=== PATIENT | male | born 1950 | race Caucasian/White ===

== ENCOUNTER 2018-12-17 16:54 | Outpatient (CLI) | payer MEDICARE, OTHER ==
--- NOTE | 2018-12-17 17:13 | RAD ---
TWO VIEWS OF THE CHEST: 12/17/18 COMPARISON: None. HISTORY: COPD and dyspnea. FINDINGS: Two views of the chest show normal sized cardiomediastinal silhouette. There is no evidence of consol idation, mass, or pleural effusion. The bones are unremarkable. IMPRESSION: No evidence of acute cardiopulmonary disease. POS: [facility]
== END 2018-12-17 16:55 | disposition home or self-care (01) ==
LOC: MADRAD 16:54
PROVIDERS: ATTEND Nurse Practitioner Family
DX: J44.9 Chronic obstructive pulmonary disease, unspecified (principal); R06.00 Dyspnea, unspecified; R09.1 Pleurisy; R30.0 Dysuria; R53.83 Other fatigue; Z85.72 Personal history of non-Hodgkin lymphomas
CPT/HCPCS: 71046

== ENCOUNTER 2018-12-24 11:55 | Outpatient (CLI) | payer MEDICARE, MEDICAID ==
--- NOTE | 2018-12-24 13:27 | RAD ---
LEFT WRIST RADIOGRAPHS FOUR VIEWS: 12/24/2018 PROVIDED CLINICAL HISTORY: Chronic pain. FINDINGS: There is no evidence for fracture or other acute osseous abnormality. Alignment appears anatomic. Rachel int space appear preserved. IMPRESSION: No evidence for an acute osseous abnormality or significant arthropathy. POS: [facility]
== END 2018-12-24 11:56 | disposition home or self-care (01) ==
LOC: MADRAD 11:55
PROVIDERS: ATTEND Nurse Practitioner Family
DX: M25.532 Pain in left wrist (principal); M67.432 Ganglion, left wrist

== ENCOUNTER 2019-04-23 11:05 | Outpatient (CLI) | payer MEDICARE, OTHER ==
--- NOTE | 2019-04-23 11:41 | RAD ---
RADIOGRAPH CHEST 2 VIEWS: DATE: 04/23/2019 HISTORY: 68-year-old male with cough FINDINGS: There is no airspace density, pulmonary edema, pleural effusion, pneumothorax, or cardiomegaly. 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 IMPRESSION: No acute cardiopulmonary findings.
== END 2019-04-23 11:06 | disposition home or self-care (01) ==
LOC: MADRAD 11:05
PROVIDERS: ATTEND Nurse Practitioner Family
DX: J44.9 Chronic obstructive pulmonary disease, unspecified (principal); R06.9 Unspecified abnormalities of breathing; R53.83 Other fatigue; R09.1 Pleurisy; Z72.0 Tobacco use
CPT/HCPCS: 71046

== ENCOUNTER 2019-07-31 15:33 | Emergency (ER) | payer MEDICARE ==
[2019-07-31 16:18] LABS: ALT (SGPT) 19 U/L (8-55); AST (SGOT) 19 U/L (5-34); Albumin 4.3 g/dL (3.4-4.8); Alkaline Phosphatase 80 U/L (40-110); Anion Gap 17 mmol/L (10-20); BUN (Urea Nitrogen) 10 mg/dL (8.4-25.7); Bilirubin, Total 0.3 mg/dL (0.2-1.2); Calc. Creatinine Clearance 0 mL/min (70-130); Calcium 8.5 mg/dL (7.8-10.44); Carbon Dioxide 24 mmol/L (23-31); Chloride 101 mmol/L (98-107); Estimated GFR-MDRD 89; Glucose 88 mg/dL (80-115); Lipase 34 U/L (8-78); Protein, Total 7.3 g/dL (5.8-8.1); Sodium 138 mmol/L (136-145)
[2019-07-31] MEDS ORDERED: Aspirin 325 MG TAB ONE (16:20)
== END 2019-07-31 17:00 | disposition short-term general hospital (02) ==
LOC: MADERS 15:33
DX: R07.9 Chest pain, unspecified (principal); J44.9 Chronic obstructive pulmonary disease, unspecified; F32.9 Major depressive disorder, single episode, unspecified; F41.9 Anxiety disorder, unspecified; F17.210 Nicotine dependence, cigarettes, uncomplicated
CPT/HCPCS: 36415; 71046; 80048; 82553; 83690; 84484; 85025; 93005